=== PATIENT | male | born 1945 | race Two or more races ===

== ENCOUNTER 2025-01-12 18:29 | Emergency (ER) | payer MEDICARE, MEDICAID, SELFPAY ==
[2025-01-12 19:08] VITALS: BP 157/70; PULSE 84; RESP 19; TEMP 37.4; O2SAT 95; BMI 29.0
--- NOTE | 2025-01-12 19:17 | XR_ITS ---
Examination: Foot, left, 3 views Technique: AP, oblique, lateral views foot, 3 views Date and time of exam: January 12, 2025, 9:50 PM Indications: Left foot pain beginning 2 days ago Findings: Soft tissue vascular calcification. No ariane cortical bone destruction No opaque foreign body No fracture Impression: No ariane cortical bone destruction
--- NOTE | 2025-01-12 19:22 | PD.EDANKLE ---
Lower Extremity Injury RME/HPI General Chief Complaint: Ankle/Foot Injury Stated Complaint: LEFT FOOT PAIN Time Seen by Provider: 01/12/25 19:16 Arrival date/time: 01/12/25 18:29 79M with history of HTN, afib w/ pacemaker, DM, and ESRD presents to ED with several days of pain on top of L foot w/o known fall/trauma. Limitations: no limitations Related Data Home Medications ?Medication ?Instructions ?Recorded ?Confirmed cilostazol 100 mg tablet 100 mg PO BID #0 tabs 05/11/15 01/01/21 folic acid 1 mg tablet 1 mg PO QDAY #0 tabs 05/11/15 01/01/21 tamsulosin 0.4 mg capsule (Flomax) 0.4 mg PO BID ##0 05/24/17 01/01/21 ferrous sulfate 325 mg (65 mg 325 mg PO TID 06/23/18 01/01/21 iron) tablet linagliptin 5 mg tablet (Tradjenta) 5 mg PO QDAY 06/23/18 01/01/21 omeprazole 20 mg capsule,delayed 20 mg PO QDAY 06/23/18 01/01/21 release terazosin 2 mg capsule 2 mg PO DAILY 06/25/20 01/01/21 aspirin 81 mg tablet,delayed 81 mg PO QDAY 06/28/20 01/01/21 release Held on 11/21/20. Instructions: Resume on 11/23/20. atorvastatin 20 mg tablet 20 mg PO QDAY 11/21/20 01/01/21 dulaglutide 0.75 mg/0.5 mL 0.75 mg subcut QWEEK 11/21/20 01/01/21 [facility] finasteride 5 mg tablet 5 mg PO QDAY 11/21/20 01/01/21 Previous Rx's ?Medication ?Instructions ?Recorded apixaban 2.5 mg tablet (Eliquis) 2.5 mg PO BID #60 tabs 07/05/20 Held on 11/21/20. Instructions: Resume on 11/23/20. metoprolol succinate 25 mg 100 mg (4 x 25 mg) PO DAILY #60 07/05/20 tablet,extended release 24 hr tabs ondansetron 8 mg disintegrating 8 mg PO Q8H PRN nausea and 09/16/23 tablet vomiting #20 tabs Allergies Allergy/AdvReac Type Severity Reaction Status Date / Time ampicillin Allergy Intermediate RASH Verified 01/12/25 18:32 Review of Systems Review of Systems Systems Reviewed: All systems reviewed, normal except as documented Musculoskeletal Musculoskeletal: Reports as per HPI and Reports arthralgias Past Medical History Past Medical History NEUROLOGIC: Positive Peripheral Neuropathy CARDIAC: Positive Cardiac Disorders, Myocardial Infarction, Edema, Deep Vein Thrombosis and Hypertension (diastolic low new med adjustment made); Negative Congestive Heart Failure RESPIRATORY: Positive Asthma and Pneumonia (1992); Negative Chronic Obstructive Pulmonary Disease (COPD) GASTROINTESTINAL: Positive Gastroesophageal Reflux Disease GENITOURINARY: Positive Renal Disease ENT: Positive Cataracts and Glaucoma ENDOCRINE: Positive Endocrine Disorders and Diabetes Mellitus Type 2; Negative Diabetes Mellitus Type 1 HEMATOLOGIC: Negative Sickle Cell Disease OTHER HISTORY: Negative Blood Transfusions Surgical History SURGICAL: Positive Open Heart Surgery and Coronary Artery Bypass Graft (tripple bypass 1995) Social History SMOKING STATUS: Never smoker SECOND HAND EXPOSURE: No ED Exam General Limitations: Present no limitations General appearance: Present alert and in no apparent distress Head Head exam: Present atraumatic Neck Neck exam: Present normal inspection, full ROM and trachea midline Chest Chest inspection: Present normal inspection and symmetric chest wall rise Extremities Exam Extremities exam: Present full ROM Expanded Lower Extremity Exam Foot/toe exam: Present full ROM and tenderness (minimal top of L foot) Neurological Exam Neurological exam: Present alert and oriented X3 Psychiatric Psychiatric exam: Present normal affect and normal mood Skin Skin exam: Present warm, dry, intact and normal color Course Quality Measures none Orders Category Date Time Status XR foot comp LT min 3V Stat Exams 01/12/25 19:17 Completed HYDROcodone*/APAP 5/325 [[place] 5/325] Med 01/12/25 19:17 Discontinued 1 tab PO X1 ONE Vital Signs Vital signs: Vital Signs Temperature 99.4 F 01/12/25 19:08 Pulse Rate 84 01/12/25 19:08 Respiratory Rate 19 01/12/25 19:08 Blood Pressure 157/70 H 01/12/25 19:08 Pulse Oximetry (%) 95 01/12/25 19:08 Oxygen Delivery Method Room Air 01/12/25 19:08 O2 at 95% on RA and WNLs Extremity Injury, Lower MDM Narrative MDM Narrative:: 79M with history of HTN, afib w/ pacemaker, DM, and ESRD presents to ED with several days of pain on top of L foot w/o known fall/trauma. Physical exam reveals minimal tenderness on L top of foot near 3rd and 4th toes. No redness or swelling. Gait and ROM intact. Patient is afebrile, calm, and alert. XR unremarkable. Meds and after school counselor given. Patient data External records reviewed:: [facility] previous records Clinical information provided by:: patient Social determinants that could affect healthcare access:: none Patient has the following chronic illnesses:: HTN, afib w/ pacemaker, DM, and ESRD How is presenting disease/condition affected by chronic disease/condition?: exacerbated by Evaluation data The following diagnostics were reviewed and interpreted by me:: radiology exam(s) Lab and/or radiology exams considered but not ordered:: ordered Interpretation Summary: above Medications / Prescriptions Medications or Prescriptions considered but not ordered:: ordered Medication administrations:: Medication Administration History Discontinued Medications Hydrocodone Bitart/Acetaminophen (Hydrocodone/Apap 5/325 Tablet) 1 tab PO X1 ONE Stop: 01/12/25 19:18 Last Admin: 01/12/25 19:34 Dose: 1 tab Documented By: MC above Consultations Consultation(s) initiated? (list below): No Diagnosis Extremity Injury, Lower Differential Diagnosis: ankle sprain and strain, acute internal derangement of knee, puncture wound of foot, fracture of toe, ankle fracture and other (foot pain, cellulitis, abscess, foot fracture) Most likely diagnosis given after review of the tests above:: foot pain Admission Indicated Admission indicated?: not indicated Admission Request Was there a request for admission?: No Disposition Plan Disposition Plan: Discharge Discharge Attestation Discharge Attestation: The patient and all family members were given an opportunity to ask questions and understood the discharge instructions. Discharge instructions specifically effects, indications for sooner follow up or return to the emergency department, and the expected course of current diagnosis. Patient condition: Stable Discharge Plan Plan Patient Disposition: HOME (Self Care) Discharge Disposition comment: Stable Prescriptions/Referrals Prescriptions/Med Rec: No Action cilostazol 100 MG tablet 100 mg PO BID Qty: 0 folic acid 1 MG tablet 1 mg PO QDAY Qty: 0 tamsulosin [Flomax] 0.4 MG capsule,extended release 24hr 0.4 mg PO BID Qty: 0 terazosin 2 mg Capsule 2 mg PO DAILY ferrous sulfate 325 mg (65 mg iron) Tablet 325 mg PO TID Tradjenta 5 mg Tablet 5 mg PO QDAY omeprazole 20 mg Capsule,Delayed Release(Dr/Ec) 20 mg PO QDAY aspirin 81 mg Tablet,Delayed Release (Dr/Ec) 81 mg PO QDAY metoprolol succinate 25 mg Tablet Extended Release 24 Hr 100 mg PO DAILY Qty: 60 0RF Eliquis 2.5 mg tablet 2.5 mg PO BID Qty: 60 0RF finasteride 5 mg Tablet 5 mg PO QDAY Trulicity 0.75 mg/0.5 mL Pen Injector 0.75 mg SUBCUT QWEEK atorvastatin 20 mg tablet 20 mg PO QDAY ondansetron 8 mg tablet,disintegrating 8 mg PO Q8H PRN (Reason: nausea and vomiting) Qty: 20 0RF Referrals: Ivett Gonsalez [employer] [Primary Care Provider] - In 1 week Problem List Clinical Impression: Foot pain Patient/Caregiver Discharge Instructions Education Materials: ED Myalgias Additional Instructions: Please follow-up with PCP within 24-48 hours and return immediately if symptoms worsen. If problem persists, recommend outpatient PT and/or MRI follow-up. In the meantime, rest, use ice/heat, and/or compression. Print Language: Romansh Stand Alone Forms: Patient Portal Info Letter PA/DANIKA Supervising Physician OLIVER/DANIKA Supervising Physician: Dr. Lemus
[2025-01-12] MEDS: HYDROcodone/APAP 5/325 TABLET 1 TAB PO (19:34)
[2025-01-12 21:12] VITALS: RESP 16
== END 2025-01-12 21:13 | disposition home or self-care (01) ==
PROVIDERS: Emergency Provider Emergency Medicine; PCP Nurse Practitioner Family
DX: M79.672 Pain in left foot (principal)
CPT/HCPCS: 73630; 99283; A9270

== ENCOUNTER → 2025-01-18 | Outpatient (CLI) | payer MEDICARE, MEDICAID, SELFPAY ==
[2025-01-18 13:18] LABS: Basophils # (Auto) 0.1 Thou/mm3 (0.0-0.2); Basophils % (Auto) 1 % (0-2.5); Eosinophils # (Auto) 0.2 Thou/mm3 (0.0-0.5); Eosinophils % (Auto) 3 % (0-10); Hematocrit 34.0 % (41.0-53.0); Hemoglobin 11.3 g/dL (13.5-16.0); Immature Granulocytes Auto 0.02 Thou/mm3 (0.00-0.00); Lymphocytes # (Auto) 1.1 Thou/mm3 (1.0-4.8); Lymphocytes % (Auto) 16 % (10-50); Mean Corpuscular HGB Conc 33.2 g/dl (31.0-37.0); Mean Corpuscular Hemoglobin 30.7 pg (25.0-35.0); Mean Corpuscular Volume 92 fL (80-100); Monocytes # (Auto) 0.7 Thou/mm3 (0.0-0.8); Monocytes % (Auto) 10 % (0-12); Neutrophils # (Auto) 4.9 Thou/mm3 (1.8-7.7); Neutrophils % (Auto) 70 % (37-80); Nucleated Red Blood Cell # 0.00 Thou/mm3 (0.00-0.00); Nucleated Red Blood Cell % 0 /100 WBC (0); Platelet Count 178 Thou/mm3 (140-440); RDW Standard Deviation 45.7 fL (35.1-43.9); Red Blood Count 3.68 Miln/mm3 (4.50-5.90); White Blood Count 7.0 Thou/mm3 (3.8-10.6)
[2025-01-18 13:22] LABS: INR 1.0 (0.9-1.3); Partial Thromboplastin Time 29.8 Seconds (22.0-36.0); Prothrombin Time 11.2 Seconds (9.0-12.2)
[2025-01-18 13:27] LABS: Anion Gap 10 (7-16); BUN/Creatinine Ratio 4 Ratio (12-20); Blood Urea Nitrogen 9 mg/dL (9-23); Calcium 8.7 mg/dL (8.3-10.6); Carbon Dioxide 32.5 mMol/L (20.0-31.0); Chloride 97 mMol/L (98-107); Creatinine (Component) 2.4 mg/dL (0.6-1.3); Glucose 189 mg/dL (74-106); Osmolality,Calculated 281 (275-295); Potassium 4.1 mMol/L (3.4-5.1); Sodium 139 mMol/L (136-145); eGFR 27 See Note
== END | disposition home or self-care (01) ==
LOC: COPL 11:59
PROVIDERS: PCP Registered Nurse Community Health; Referring Provider Internal Medicine; Visit Provider Internal Medicine
DX: I25.10 Atherosclerotic heart disease of native coronary artery without angina pectoris (principal); I48.91 Unspecified atrial fibrillation
CPT/HCPCS: 36415; 80048; 85025; 85610; 85730